=== PATIENT | male | born 1960 | race Caucasian/White ===

== ENCOUNTER 2021-04-25 12:47 | Outpatient (CLI) | payer OTHER, SELFPAY | END 2021-04-25 12:48 | disposition home or self-care (01) | LOC: ANHSURGERY 12:52 | PROVIDERS: PCP Family Medicine; Visit Provider Urology | DX: R97.20 Elevated prostate specific antigen [PSA] (principal) | CPT/HCPCS: 87086 ==

== ENCOUNTER 2021-05-02 01:11 | Day surgery (SDC) | payer OTHER, SELFPAY ==
[2021-04-25 11:07] VITALS: BMI 25.5
--- NOTE | 2021-04-25 11:18 | PC.NURSE ---
Report to the Outpatient Waiting Room, entrance under the green pavilion located off [facility], at time 10:30 on date 05/02/21. OR Time: 12:30. - You will be asked a series of questions to screen for COVID 19 for your protection. - A mask is required within the hospital. - No visitors are allowed at this time. Preoperative COVID Testing Requirements: No COVID Test needed if: (proof is required; if not received patient will have Rapid Test prior to entry) - Patient has received COVID Vaccine at least 14 days prior to procedure date or - Patient has positive COVID test result within last 90 days of surgery date. COVID Test needed if above criteria is not met Patients may have clear liquids (water, carbonated beverages, clear teas, apple juice) until 3 hours prior to surgery (9:30) with a maximum of 20 ounces. - No food from midnight until time of surgery Take the following medications with a SIP of water the morning of surgery: NONE Medications to discontinue per physician: N/A Date to take last dose: N/A Please no make-up, nail japanese, hairspray, perfume, deodorant, or body powder the day of surgery. No jewelry (including any body piercings) or valuables the day of surgery, leave them at home. Please take a shower or bath the night before, or the morning of, surgery with an antibacterial soap. Wear comfortable, loose fitting clothing. - Jewelry must be removed prior to entering the operating room. Rings and piercings that are not removed may be cut off. - The hospital will not accept responsibility for valuables. - Please leave all valuables, including medications, at home the day of surgery. If you are going home after surgery, a licensed straddle bug driver must drive you home. - NO public transportation without another adult. - We recommend that an adult stay with you for 24 hours following discharge. - We also recommend that you do not drive, make important decision, drink alcoholic beverages, or take any drugs that were not prescribed by your health care provider for at least 24 hours after your discharge time. Follow any additional instructions given to you from your surgeon. Telephone instructions given to ROSAMARIA GORDON and asked if any additional questions and then verbalized understanding. Patient advised to call surgeon office or pre surgery nurse liaison [phone] if any additional questions.
--- NOTE | 2021-05-02 11:29 | P.PNAN_ITS ---
Anes - Initial Pre Proc Eval Procedure: Operation Date: 05/02/21 12:30 Proposed Procedures p Transrectal Ultrasound Fusion Guided Prostate Biopsy - Bg Randolph MD Date/Time: 05/02/21 11:29 Surgeon: Bg Randolph MD Pre Op Diagnosis: elevated PSA Patient Data Age: 60 Gender: M Height: 1.78 m Weight: 82.1 kg Allergies Allergy/AdvReac Type Severity Reaction Status Date / Time No Known Allergies Allergy Unknown Verified 05/02/21 10:58 Home Medications Medication Instructions Recorded Confirmed Type No Home Medications 04/25/21 05/02/21 History Patient hx anesthesia problems: none Family hx anesthesia problems: none Results Review: All pre-operative results and documents have been reviewed as part of the pre-operative evaluation. [facility] Past Medical History Medical History (Updated 05/02/21 @ 11:30 by Ino Odell DO) Bradycardia Ectopic atrial rhythm Eczema Screening for prostate cancer Screening, lipid Throat pain in adult Family History Family History Father Malignant neoplasm of prostate Dementia Parkinson's disease Mother Family history of diabetes mellitus in first degree relative Social History Social History Smoking packs per day: 0.5 Smoking cigarettes per day: 10.0 Years smoked: 10 Smoking pack-years: 5.00 Smoking status: Former smoker Tobacco type: cigarettes Smoking end date: 03/25/98 Alcohol intake: current Drinks per week: 12 Substance use: never Substance use type: does not use Living arrangements: with family Additional living arrangements comments: Additional occupation/education comments: IT Gender identity (if verbalized by the patient): Male Sexual Orientation (if Verbalized by the Patient): Straight or Heterosexual Spiritual care concerns: No Agree to blood products: Yes Anes - Eval Final PreProcedure Day of Procedure 05/02/21 11:29 Patient weight: overweight Heart: regular rate and rhythm Lungs: clear to auscultation and normal air movement Airway: Mallampati scale class II Neurological: alert and oriented Last oral intake: >/= 8 hours ASA classification: II Emergent: no Anesthetic plan: proceed Anesthesia type and monitoring: general LMA and standard monitoring Results Review: All pre-operative results and documents have been reviewed as part of the pre-operative evaluation. Informed Consent: The patient's anesthetic plan and its attendant risks and bene fits were discussed with the patient/family/POA. Questions were solicited and answers provided to the satisfaction of the patient/family/POA.
--- NOTE | 2021-05-02 11:29 | WPDHPUPDATE1 ---
History and Physical Update Update Date/Time: 05/02/21 11:29 History and Physical has been reviewed, including an updated exam of the patient. There are NO changes in the patient's condition. Risks, benefits, and alternatives have been discussed and questions answered. Patient agrees to proceed with procedure. Proceed with Uronav ultrasound biopsy
[2021-05-02] MEDS: LACTATED RINGERS 1,000 ML 30 ML IV CONT (11:52)
[2021-05-02] MEDS: ceFAZolin 2 GM/D5W 50 ML 2 GM/50 ML BAG IVPB (12:01)
--- NOTE | 2021-05-02 12:21 | W.PM.PROC2 ---
Procedure Note - Detailed Date of Procedure 05/02/21 Pre-op Diagnosis elevated PSA Post-op Diagnosis same Procedure Performed Uronav us and prostate biopsy Surgeon Bg Randolph MD Anesthesia general Description of Procedure Patient is taken the operative suite and correctly identified. Once anesthesia was obtained and patient was in lateral decubitus position. Transrectal ultrasound was then performed. The MR image was then fused to the ultrasound image. Patient had 2 regions of interest. We took 3 from each region. We then took 12 cores in our standard biopsy. Patient tolerated procedure well without complication is taken recovery stable condition. He will call in 1 week if he is not heard from us regarding the results. Estimated Blood Loss 10 Drains No Packing No Pathology yes Complications No immediate complications Condition stable Disposition PACU
[2021-05-02 12:24] VITALS: BP 97/66; PULSE 54; RESP 12; TEMP 36.4; O2SAT 100
[2021-05-02 12:40] VITALS: BP 110/57; PULSE 58; RESP 12; O2SAT 100
[2021-05-02 12:55] VITALS: BP 98/54; PULSE 60; RESP 14; O2SAT 98
[2021-05-02 13:01] VITALS: BP 121/76; PULSE 62; RESP 14
[2021-05-02 13:30] VITALS: BP 122/75; PULSE 54; RESP 16
== END 2021-05-02 13:52 | disposition home or self-care (01) ==
PROVIDERS: PCP Family Medicine; Visit Provider Urology
PROC: (CPT 55700; principal; 2021-05-02 12:30)
DX: R97.20 Elevated prostate specific antigen [PSA] (principal); N42.89 Other specified disorders of prostate; R00.1 Bradycardia, unspecified; Z87.891 Personal history of nicotine dependence
CPT/HCPCS: 76872; 55700; 88342; G0416; J0690; J1100; J2405; J2704; J7120

== ENCOUNTER 2021-12-09 22:27 | Emergency (ER) | payer OTHER, SELFPAY ==
[2021-12-09] VITALS (13 sets, daily range): BP systolic 107–131; BP diastolic 66–85; PULSE 74–89; RESP 15–23; TEMP 36.6; O2SAT 98–100
--- NOTE | ~2021-12-09 | XR_ITS ---
EXAMINATION: XR chest 1V portable DATE: 12/09/2021 22:52 INDICATION: Syncope. TECHNIQUE: A single frontal view of the chest was obtained. COMPARISON: None. FINDINGS: The chest demonstrates clear lungs without pneumonia, pleural effusion, or pneumothorax. Th e heart size is normal. IMPRESSION: 1. No acute cardiopulmonary disease. Reviewed, dictated and finalized at location A.
--- NOTE | 2021-12-09 22:34 | ECG_ITS ---
Measurements Intervals [place] Rate: 72 P: 53 MT: 174 QRS: 46 QRSD: 95 T: 48 QT: 412 QTc: 454 Interpretive Statements SINUS RHYTHM BORDERLINE ST ABNORMALITY- ANTEROLAT/INF LEADS BASELINE ARTIFACT- III BORDERLINE ECG NO PREVIOUS ECG AVAILABLE FOR COMPARISON Electronically Signed On 12-10-2021 8:01:29 CDT by Deonte Cervantes D.O.
--- NOTE | 2021-12-09 22:38 | ED.GENADULT ---
HPI - General Adult General Chief complaint: Syncope Stated complaint: ALTERED/DIZZY Source: RN notes reviewed History of Present Illness HPI narrative: Patient presents emergency department EMS for syncope. Patient states he was [place] [employer] today when he was listening to a band states he began to feel lightheaded and dizzy and told his friend he laid him down on the ground he then had a syncopal episode he is unsure how long he was out for. He states he did not fall to the ground was laid to the ground states he had had about 3 beers and was feeling warm states he feels fine at this time he denies any headaches vision changes chest pain shortness of breath abdominal pain nausea vomiting or any other symptoms. When EMS arrived patient initially had systolic blood pressures in the 90s that is improved with fluid Related Data Home Medications Medication Instructions Recorded Confirmed No Home Medications 04/25/21 05/02/21 Allergies Allergy/AdvReac Type Severity Reaction Status Date / Time No Known Allergies Allergy Unknown Verified 12/09/21 22:36 Review of Systems Review of Systems: Gen.: Denies fevers or chills ENT: Denies congestion Respiratory: Denies shortness of breath or cough CV: See HPI GI: Denies abdominal pain nausea, emesis or diarrhea Musculoskeletal: Denies back pain or muscle pain Neuro: Denies numbness, tingling, weakness or focal weakness Skin: Denies rash Except as documented, all other systems reviewed and negative [facility] Past Medical History Medical History Bradycardia Ectopic atrial rhythm Eczema Screening for prostate cancer Screening, lipid Throat pain in adult Family History Family History Father Malignant neoplasm of prostate Dementia Parkinson's disease Mother Family history of diabetes mellitus in first degree relative Social History Social History Smoking packs per day: 0.5 Smoking cigarettes per day: 10.0 Years smoked: 10 Smoking pack-years: 5.00 Smoking status: Former smoker Tobacco type: cigarettes Smoking end date: 03/25/98 Alcohol intake: current Drinks per week: 12 Substance use: never Substance use type: does not use Additional living arrangements comments: Additional occupation/education comments: IT Gender identity (if verbalized by the patient): Male Sexual Orientation (if Verbalized by the Patient): Straight or Heterosexual Spiritual care concerns: No Agree to blood products: Yes Exam Narrative: APPEARANCE: No acute distress, nontoxic, resting in bed EYES: EOMI HEENT: Normocephalic, atraumatic, OMM RESPIRATORY: No respiratory distress Clear to auscultation bilaterally with no rhonchi wheezing or rales. CARDIOVASCULAR: Regular rate and rhythm without murmurs rubs or gallops. ABDOMINAL: Soft, nontender, nondistended, no rebound or guarding MUSCULOSKELETAl: Moves all extremities. No clubbing, cyanosis or edema. NEURO: Awake and alert. Following commands, speech normal, no focal deficits SKIN:: Warm, dry. No rashes lesions or abrasions PSYCHIATRIC: Normal affect/mood, Course Course Emergency Course: Reviewed old records including notes from Dr. Hernandes's office Discussed with Dr. Fernandez presentation work-up at this time feels patient may be discharged home with follow-up as an outpatient Discussed with patient results of workup and diagnosis. Discussed need for follow-up with primary care, proper use of medication, and reasons to return to the emergency department. Patient understands and agrees to current treatment plan Vital Signs Vital signs: Vital Signs Temperature 97.9 F 12/09/21 22:28 Pulse Rate 76 12/09/21 22:28 Respiratory Rate 19 12/09/21 22:28 Blood Pressure 125/78 12/09/21 22:28 Pulse Oximetry 100 12/09/21 22:28 Oxygen D
[2021-12-09] MEDS: SODIUM CHLORIDE 0.9% IV 1,000 ML 999 ML IV CONT (22:59)
[2021-12-09 23:37] LABS: Basophils Absolute Auto 0.1 K/mm3 (0.0-0.1); Basophils Percent Auto 0.7 % (0.2-1.2); Eosinophils Absolute Auto 0.2 K/mm3 (0-0.3); Eosinophils Percent Auto 3.6 % (0-4.4); Hematocrit 37.4 % (42.0-52.0); Hemoglobin 12.9 g/dL (14.0-18.0); Immature Granulocyte Absolute 0.01 K/mm3 (0.00-0.031); Immature Granulocyte Percent A 0.1 % (0-0.5); Lymphocytes Absolute Auto 2.64 K/mm3 (0.9-3.2); Lymphocytes Percent Auto 39.6 % (18.3-44.2); Mean Corpuscular HGB Conc 34.5 g/dl (32-36); Mean Corpuscular Hemoglobin 31.8 pg (26-34); Mean Corpuscular Volume 92.1 fl (80-100); Monocytes Absolute Auto 0.6 K/mm3 (0.1-0.6); Monocytes Percent Auto 8.4 % (2.6-8.5); Neutrophils Absolute Auto 3.2 K/mm3 (1.3-6.7); Neutrophils Percent Auto 47.6 % (45.5-73.1); Platelet Count Result 208 k/mm3 (150-375); Red Blood Count 4.06 M/mm3 (4.6-6.20); White Blood Count 6.7 K/mm3 (4.5-10.0)
[2021-12-09 23:46] LABS: Appearance Urine Clear (Clear); Bilirubin Urine Negative (Negative); Color Urine Yellow (Yellow); Glucose Urine UA Negative (Negative); Ketones Urine 1+ mg/dL (Negative); Leukocyte Esterase Ur Negative LEU/UL (Negative); Nitrate Urine Negative (Negative); Protein Urine Negative (Negative); Specific Grav Ur 1.025 (1.001-1.035); Urobilinogen Urine 0.2 mg/dL (<2.0); pH Urine 5.5 (5.0-9.0)
[2021-12-09 23:50] LABS: Mucus Urine Rare /lpf; RBC Urine 0-2 /hpf (0-2); WBC Urine 0-3 /hpf
[2021-12-09 23:54] LABS: Alanine Aminotransferase 16 U/L (6-50); Albumin Level 4.3 g/dL (3.5-5.1); Alkaline Phosphatase 77 U/L (38-126); Anion Gap 13 mmol/L (8-16); Aspartate Amino Transferase 25 U/L (17-59); Bilirubin,Total 0.3 mg/dL (0.2-1.3); Blood Urea Nitrogen 18 mg/dL (9-20); Calcium 8.9 mg/dL (8.4-10.2); Carbon Dioxide 23 mmol/L (22-30); Chloride 102 mmol/L (98-107); Estimated CRCL calculation 49 ml/min; Estimated Glomerular Filt Rate 48; Glucose 107 mg/dL (65-110); Lipase 101 U/L (23-300); Potassium 3.3 mmol/L (3.4-5.0); Sodium 138 mmol/L (137-145)
[2021-12-09 23:56] LABS: Prothrombin Time 12.8 Seconds (11.1-14.7)
[2021-12-09 23:57] LABS: Partial Thromboplastin Time 21.7 SECONDS (22.3-36.8)
[2021-12-10] VITALS (10 sets, daily range): BP systolic 120–124; BP diastolic 72–73; PULSE 77–85; RESP 13–17; O2SAT 99–100
[2021-12-10] LABS: Ethanol 87 mg/dL (<10)
[2021-12-10 00:02] LABS: Add Urine Microscopic? YES; Blood Urine Trace (Negative)
[2021-12-10 00:05] LABS: Troponin I < 0.012 ng/mL (0.000-0.034)
--- NOTE | 2021-12-10 00:19 | PC.NURSE ---
Patient refused potassium, states he wants to leave and speak with the provider. ERP notified.
== END 2021-12-10 01:29 | disposition home or self-care (01) ==
PROVIDERS: Emergency Provider Emergency Medicine; PCP Family Medicine
DX: R55 Syncope and collapse (principal); Z87.891 Personal history of nicotine dependence
CPT/HCPCS: 36415; 71045; 80053; 80307; 81001; 83690; 84484; 85025; 85610; 85730; 93005; 96360; 99284; J7030

== ENCOUNTER 2023-06-05 06:34 | Day surgery (SDC) | payer OTHER, SELFPAY ==
[2023-04-05 14:59] VITALS: BMI 25.8
[2023-06-05 07:49] VITALS: BP 123/73; PULSE 66; RESP 18; TEMP 36.6; O2SAT 100
[2023-06-05] MEDS: LACTATED RINGERS 1,000 ML 150 ML IV CONT (08:03)
--- NOTE | 2023-06-05 08:30 | PM.HPGS ---
History of Present Illness History of Present Illness Consent: Risks, benefits, and alternatives have been discussed and questions answered. Patient agrees to proceed with procedure. Chief complaint: Encounter for malignant neoplasm of colon Narrative: Gene Ledbetter is a 62 year old male presents for screening colonoscopy. Patient has current weight appetite S are normal. He denies abdominal pain. Patient has had no bleeding. Family history noncontributory. Previous exam 10 years ago was unremarkable. Review of Systems Review of Systems: Review of systems noncontributory. [facility] Past Medical History Medical History BMI 25.0-25.9,adult BMI 26.0-26.9,adult Bradycardia Ectopic atrial rhythm Eczema Hypokalemia Screening for prostate cancer Screening, lipid Throat pain in adult Family History Family History Father Malignant neoplasm of prostate Dementia Parkinson's disease Mother Family history of diabetes mellitus in first degree relative Social History Social History Smoking packs per day: 0.5 Smoking cigarettes per day: 10.0 Years smoked: 10 Smoking pack-years: 5.00 Smoking status: Former smoker Tobacco type: cigarettes Smoking end date: 03/25/98 Alcohol intake: current Drinks per week: 9 Substance use: never Substance use type: does not use Lack of Transportation: No Lack of Food: Never True Current Housing: I Have Housing Concerned About Future Housing: No Difficulty Paying Gas/Electric Bills: No Difficulty Paying for Meds: No Currently Unemployed: No Education: Bachelor's Degree Difficulty w/ Childcare or Family Care: No Living arrangements: with family Additional living arrangements comments: Occupation/Education: occupation Additional occupation/education comments: IT Gender identity (if verbalized by the patient): Male Sexual Orientation (if Verbalized by the Patient): Straight or Heterosexual Spiritual care concerns: No Agree to blood products: Yes Meds Home Medications and Allergies Home Medications Medication Instructions Recorded Confirmed Type Vitamin D3 1 tab-cap PO DIRECTED 05/24/23 06/05/23 History Allergies Allergy/AdvReac Type Severity Reaction Status Date / Time No Known Allergies Allergy Unknown Verified 06/05/23 07:46 Vital Signs Vital Signs - 24 hr 06/05/23 07:49 Temperature 97.9 F Pulse Rate 66 Respiratory Rate 18 Blood Pressure 123/73 Pulse Oximetry 100 Oxygen Delivery Room Air Exam Narrative: Physical exam reveals patient to be alert. Vital signs stable. HEENT exam is unremarkable. Patient is anicteric. Lungs are clear to auscultation and percussion. Heart is without murmur or extra sounds. Abdomen bowel sounds are present soft nontender with no organomegaly . Digital and external rectal exam normal. Assessment and Plan Assessment and plan (1) Screening for colon cancer: Code(s): Z12.11 - Encounter for screening for malignant neoplasm of colon Status: Acute Assessment and Plan: The patient Presents today for screening colonoscopy. He appears to be at average risk for colon polyps.
--- NOTE | 2023-06-05 08:46 | WPDANESEPPF ---
Anes - Initial Pre Proc Eval Procedure: Operation Date: 06/05/23 09:00 Proposed Procedures p Screening Colonoscopy - Brody Martino MD Date/Time: 06/05/23 08:46 Surgeon: Brody Martino MD Pre Op Diagnosis: Encounter for malignant neoplasm of colon Patient Data Age: 62 Gender: M Height: 1.78 m Weight: 81.7 kg Last Vital Signs Temp 36.6 C 06/05/23 07:49 Pulse 66 06/05/23 07:49 Resp 18 06/05/23 07:49 BP 123/73 06/05/23 07:49 Pulse Ox 100 06/05/23 07:49 O2 Del Method Room Air 06/05/23 07:49 Allergies Allergy/AdvReac Type Severity Reaction Status Date / Time No Known Allergies Allergy Unknown Verified 06/05/23 07:46 Home Medications Medication Instructions Recorded Confirmed Type Vitamin D3 1 tab-cap PO DIRECTED 05/24/23 06/05/23 History Patient hx anesthesia problems: none Family hx anesthesia problems: none Results Review: All pre-operative results and documents have been reviewed as part of the pre-operative evaluation. [facility] Past Medical History Medical History BMI 25.0-25.9,adult BMI 26.0-26.9,adult Bradycardia Ectopic atrial rhythm Eczema Hypokalemia Screening for prostate cancer Screening, lipid Throat pain in adult Family History Family History Father Malignant neoplasm of prostate Dementia Parkinson's disease Mother Family history of diabetes mellitus in first degree relative Social History Social History Smoking packs per day: 0.5 Smoking cigarettes per day: 10.0 Years smoked: 10 Smoking pack-years: 5.00 Smoking status: Former smoker Tobacco type: cigarettes Smoking end date: 03/25/98 Alcohol intake: current Drinks per week: 9 Substance use: never Substance use type: does not use Lack of Transportation: No Lack of Food: Never True Current Housing: I Have Housing Concerned About Future Housing: No Difficulty Paying Gas/Electric Bills: No Difficulty Paying for Meds: No Currently Unemployed: No Education: Bachelor's Degree Difficulty w/ Childcare or Family Care: No Living arrangements: with family Additional living arrangements comments: Occupation/Education: occupation Additional occupation/education comments: IT Gender identity (if verbalized by the patient): Male Sexual Orientation (if Verbalized by the Patient): Straight or Heterosexual Spiritual care concerns: No Agree to blood products: Yes Anes - Eval Final PreProcedure Day of Procedure 06/05/23 08:46 Patient weight: normal Heart: regular rate and rhythm Lungs: clear to auscultation Airway: Mallampati scale class II Neurological: alert and oriented Last oral intake: >/= 8 hours ASA classification: II Emergent: no Anesthetic plan: proceed Anesthesia type and monitoring: general GIVS and standard monitoring Results Review: All pre-operative results and documents have been reviewed as part of the pre-operative evaluation. Informed Consent: The patient's anesthetic plan and its attendant risks and benefits were discussed with the patient/family/POA. Questions were solicited and answers provided to the satisfaction of the patient/family/POA.
[2023-06-05 09:08] VITALS: BP 92/65; PULSE 64; RESP 16; O2SAT 98
[2023-06-05 09:18] VITALS: BP 98/67; PULSE 70; RESP 20; O2SAT 99
--- NOTE | 2023-06-05 09:20 | WPDANESPN ---
Anes - Prog Note Post-Op Date/Time: 06/05/23 09:20 Cardiovascular status: normal Respiratory status: normal Airway patency: baseline Mental status: baseline Post-Op hydration status: normal Vital Signs: Last Vital Signs Temp 36.6 C 06/05/23 07:49 Pulse 66 06/05/23 07:49 Resp 18 06/05/23 07:49 BP 123/73 06/05/23 07:49 Pulse Ox 100 06/05/23 07:49 O2 Del Method Room Air 06/05/23 07:49 Pain Score (VAS): 0 I/O: Intake & Output 06/04/23 06/05/23 06/05/23 23:59 07:59 15:59 Intake Total 200 Balance 200 Patient Feedback: Patient satisfied with anesthetic care.
[2023-06-05 09:28] VITALS: BP 99/69; PULSE 68; RESP 20; O2SAT 99
== END 2023-06-05 09:40 | disposition home or self-care (01) ==
PROVIDERS: PCP Family Medicine; Visit Provider Internal Medicine Gastroenterology
PROC: 0DJD8ZZ Inspection of Lower Intestinal Tract, Via Natural or Artificial Opening Endoscopic (ICD-10-PCS; CPT 45378; principal; 2023-06-05 09:00)
DX: Z12.11 Encounter for screening for malignant neoplasm of colon (principal); K64.8 Other hemorrhoids
CPT/HCPCS: 45378

== ENCOUNTER 2024-09-17 07:45 | Outpatient (CLI) | payer OTHER, SELFPAY ==
--- NOTE | ~2024-09-17 | PE_ITS ---
EXAMINATION: PET_PETPSMAST_PT DATE: 09/17/2024 10:31 INDICATION: Prostate cancer TECHNIQUE: 4.57 mCi of Illucix Ga-68([id number]) was administered i.v. Low dose computed tomog tvaares (CT) images were acquired from the base of the brain to the base of the brain to the proximal t highs for attenuation correction and anatomic localization. Positron emission tomography (PET) images were acquired in the same distribution beginning 89 minutes after injection. Images including fused PET/CT images were reconstructed in axial, coronal, and sagittal planes. Automated exposure control t echnique was employed. The dose-length product was 1029.58mGy-cm. COMPARISON: None FINDINGS: Head/neck: Typical pattern of symmetric physiologic increased activity in the lacrimal, parotid and submandibula r glands as well as along the mucosa of the nasal and oral cavities, pharynx and hypopharynx. There i s an indeterminate approximately 1 cm focus of mild uptake with maximal SUV of 3.9 in the region of t he right petrous apex without discernible correlate on the CT imaging. No pathologically enlarged cer vical lymphadenopathy or other suspicious foci of increased uptake in the visualized head or neck. Chest: Mild mosaic attenuation in the dependent lungs consistent with dependent passive atelectasis and smal l subsegmental regions of more lucent air trapping likely related to small airway disease. No suspici ous pulmonary nodules, pneumonia, pulmonary edema or pleural effusion. Heart size is normal. No peric ardial effusion. Thoracic aorta is normal in caliber. No pathologically enlarged or PSMA avid thoraci c lymphadenopathy. Abdomen/pelvis/proximal thighs: Physiologic renal accumulation and excretion of activity in the kidneys, bladder and along portions o f ureters. Mild prostatomegaly measuring 3.8 x 2.8 cm maximal diameter. There is a small focus of inc reased PSA may activity with maximal SUV of 19 situated along the midline of the inferior prostate. N ormal degree and slightly heterogenous pattern of increased uptake throughout the liver and spleen wi thout radiologic correlate or dominant PSMA avid lesion. The gallbladder, pancreas and bilateral adre nal glands are normal. Moderate uptake scattered throughout the bowels with typical duodenal and prox imal jejunal predominance and without radiologic correlate, also likely physiologic. Normal appendix. No other abnormal foci of increased uptake or pathologically enlarged lymphadenopathy in the abdomen , pelvis or proximal thighs. Musculoskeletal: Moderate cervical and to severe and lumbosacral spondylosis with mild spondylosis of the intervening thoracic and lumbar spine. No suspicious lytic, blastic or abnormally PSMA avid bone lesions. IMPRESSION: 1. Prominent uptake at the inferior prostate consistent with primary prostate cancer. No lesion suspi cious for metastatic disease in the chest, abdomen or pelvis. 2. Indeterminate 1 cm region of mild increased uptake in the region of the right petrous apex which i s without evident correlate on CT. Recommend further evaluation with pre and postcontrast brain MR. Reviewed, dictated and finalized at location A. IMPRESSION: 1. Prominent uptake at the inferior prostate consistent with primary prostate c ancer. No lesion suspicious for metastatic disease in the chest, abdomen or pel vis. 2. Indeterminate 1 cm region of mild increased uptake in the region of the righ t petrous apex which is without evident correlate on CT. Recommend further eval uation with pre and postcontrast brain MR.
== END 2024-09-17 07:46 | disposition home or self-care (01) ==
PROVIDERS: PCP Family Medicine; Visit Provider Urology
DX: C61 Malignant neoplasm of prostate (principal)
CPT/HCPCS: 78815; A9596

== ENCOUNTER 2024-11-16 11:45 | Outpatient (CLI) | payer OTHER, SELFPAY ==
--- OUTSIDE RECORDS SUMMARY | 2024-11-16 12:18 | XMS_ITS | Continuity of Care Document ---
Author Name Griselda Hunt Address [address] [address] Organization Unknown Address [address] [address] Medications No known medications Problems No known problems
--- OUTSIDE RECORDS SUMMARY | 2024-11-16 12:18 | XMS_ITS | Clinical Summary ---
Author Organization [facility] [address] Address [address] [place] [address] Care Team Providers Care Bartacker Name Role Phone Hoang Calix MD Primary Care Provider Allergies No known active allergies Medications cholecalciferol (VITAMIN D-3) 2000 unit tablet Active Active Problems Problem Noted Date Diagnosed Date Lipid screening 07/09/2024 H/O syncope 04/08/2023 Mixed hyperlipidemia 04/08/2023 History of 2019 novel coronavirus disease (COVID -19) 08/29/2021 Other specified injury of mu scle, fascia and tendon at neck level, initial encounter 01/20/2020 Bradycardia 06/16/2018 Syncope, vasovagal 01/29/2017 Chest pain at rest 08/09/2016 Overview (08/17/2016): Chest pain at rest Chest pain 08/04/2015 Overview (06/28/2016): Other chest pain Disorder of right ventricle of heart 08/23/2014 Overview (06/28/2016): Right ventricular enlargement Ectopic atrial rhythm 08/23/2014 Overview (06/28/2016): Ectopic atrial rhythm Dizziness 08/23/2014 Overview (06/28/2016): Dizziness Atrial paroxysmal tachycardia 08/23/2014 Overview (06/28/2016): PAT (paroxysmal atrial tachycardia) Fatigue 08/23/2014 Overview (06/28/2016): Fatigue Surgical History Surgery Date Site/Laterality Comments ANKLE FRACTURE SURGERY Medical History Medical History Date Comments PAT (paroxysmal atrial tachycardia) Bradycardia Fracture Family History Medical History Relation Name Comments No Known Problems Father No Known Problems Mother Cancer Other Diabetes Other Parkinsonism Other Relation Name Status Comments Father Mother Other Social History Tobacco Use Types Packs/Day Years Used Date Smoking Tobacco: Former Smokeless Tobacco: Never Alcohol Use Standard Drinks/Week Comments Yes 0 (1 standard drink = 0.6 oz pur e alcohol) Sex and Gender Information Value Date Recorded Sex Assigned at Not on file 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 Gender Identity Not on file Sexual Orientation Not on file Obstetrics History Last Filed Vital Signs Vital Sign Reading Time Taken Comments Blood Pressure 110/72 07/09/2024 11:43 AM CDT Pulse 69 07/09/2024 11:43 AM CDT Temperature - - Respiratory Rate 14 07/09/2024 11:43 AM CDT Oxygen Saturation 98% 07/09/2024 11:43 AM CDT Inhaled Oxygen Concentration - - Weight 82.6 kg (182 lb) 07/09/2024 11:43 AM CDT Height 177.8 cm (5' 10) 07/09/2024 11:43 AM CDT Body Mass Index 26.11 07/09/2024 11:43 AM CDT Plan of Treatment Health Maintenance Due Date Last Done Comments Colon Cancer Screening-Colonoscopy 1960 Depression Screening 1960 Hepatitis C Screening 1962 Prostate Cancer Screening-PSA 1962 Hepatitis B Screening 1980 Regular Well Visit/Exam 18-64 1980 Zoster Vaccine (1 of 2) 2012 Covid-19 Vaccine (2023-2 5 season) 2023 07/13/2020, 06/22/2020 Influenza Vaccine (#1) 2024 DTaP/Tdap/Td Vaccine (2 - Td or Tdap) 01/30/2025 01/30/2015 Pneumococcal vaccine <65 Aged Out No longer eligible based on patient's age to complete this topic Insurance [facility] PLUS [facility] PLUS [facility] PLUS Care Teams Bartacker Relationship Specialty Start Date End Date Hoang Calix MD PCP - General 06/25/14
--- OUTSIDE RECORDS SUMMARY | 2024-11-16 12:18 | XMS_ITS | Encounter Summary ---
Author Organization [facility] Address [address] [place] [address] Care Team Providers Care Spooler Name Role Phone Hoang Calix MD Primary Care Provider Encounter Details Date Type Department Care Team (Late st Contact Info) Description 08/09/2016 Orders Only [facility] ProviderValdemar MD [address] [place] [id number] Social History Tobacco Use Types Packs/Day Years Used Date Smoking Tobacco: Former Cigarettes Q uit: 03/25/1996 Alcohol Use Standard Drinks/Week Comments Yes 0 (1 standard drink = 0.6 oz pur e alcohol) Sex and Gender Information Value Date Recorded Sex Assigned at Not on file 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 Historical Provider [facility] Final Result * CARDIOLOGY REPORT (08/09/2016) Anatomical Region Laterality Modality Other Narrative 08/09/2016 Ordered by an unspecified provider. us Historical Provider [facility] Final Result documented in this encounter Visit Diagnoses Not on filedocumented in this encounter Care Teams Spooler Relationship Specialty Start Date End Date Hoang Calix MD PCP - General 06/25/14 documented as of this encounter
--- NOTE | 2024-11-16 12:55 | ECG_ITS ---
Test Date: 2024-11-16 13:07:52 Measurements Intervals [place] Rate: 50 P: 52 ND: 167 QRS: 25 QRSD: 90 T: 33 QT: 441 QTc: 405 Interpretive Statements SINUS BRADYCARDIA BORDERLINE ECG No previous ECG available for comparison Electronically Signed On 11-16-2024 13:15:49 CDT by Deonte Cervantes D.O.
[2024-11-16 13:27] LABS: Hematocrit 40.5 % (42.0-52.0); Hemoglobin 13.8 g/dL (14.0-18.0); Immature Granulocyte Percent A 0.2 % (0-0.5); Lymphocytes Absolute Auto 1.59 K/mm3 (0.9-3.2); Mean Corpuscular HGB Conc 34.1 g/dl (32-36); Mean Corpuscular Hemoglobin 31.2 pg (26-34); Mean Corpuscular Volume 91.4 fl (80-100); Nucleated Red Blood Cells Absolute Auto 0.000 K/mm3 (0.0-0.012); Nucleated Red Blood Cells Perc 0.0 % (0.0-0.2); Platelet Count Result 233 k/mm3 (150-375); Red Blood Count 4.43 M/mm3 (4.6-6.20); White Blood Count 6.2 K/mm3 (4.5-10.0)
[2024-11-16 13:39] LABS: INR 1.0; Prothrombin Time 13.8 Seconds (11.1-14.7)
[2024-11-16 13:40] LABS: Partial Thromboplastin Time 24.2 Seconds (22.3-36.8)
[2024-11-16 13:42] LABS: Alanine Aminotransferase 13 U/L (6-50); Albumin Level 4.3 g/dL (3.5-5.1); Alkaline Phosphatase 66 U/L (38-126); Anion Gap 8 mmol/L (4-12); Aspartate Amino Transferase 23 U/L (17-59); Bilirubin,Total 0.5 mg/dL (0.2-1.3); Blood Urea Nitrogen 19 mg/dL (9-20); Calcium 9.3 mg/dL (8.4-10.2); Carbon Dioxide 29 mmol/L (22-30); Chloride 103 mmol/L (98-107); Estimated Glomerular Filt Rate > 60; Glucose 88 mg/dL (65-110); Potassium 3.9 mmol/L (3.4-5.0); Sodium 140 mmol/L (137-145); Total Protein 7.4 g/dL (6.3-8.2)
== END 2024-11-16 11:46 | disposition home or self-care (01) ==
PROVIDERS: PCP Family Medicine; Visit Provider Urology
DX: C61 Malignant neoplasm of prostate (principal); Z01.818 Encounter for other preprocedural examination
CPT/HCPCS: 36415; 80053; 85025; 85610; 85730; 86850; 86900; 86901; 87086; 93005

== ENCOUNTER 2024-11-24 00:58 | Day surgery (SDC) | payer OTHER, SELFPAY ==
--- NOTE | 2024-11-16 11:46 | PC.NURSE ---
Report to the Outpatient Waiting Room, entrance under the green pavilion located off [facility], at time _6 AM on date _11/24/24 . Planned Procedure Time: ___7:30 AM .? Time changes happen often and if your time is changed the preop area will call you the afternoon before. - You and your visitor will be asked to self-screen and do not enter if you have any COVID symptoms. Please call surgeon if you need to reschedule. - A mask is optional within the hospital at this time. Patients may have clear liquids (water, carbonated beverages, clear teas, apple juice) until 3 hours prior to surgery ( 4:30 AM) with a maximum of 20 ounces. - No food from midnight until time of surgery and no smoking, or chewing tobacco (or any form of nicotine). No chewing gum, candy or mints. Take only the following medications with a SIP of water on the morning of surgery: NONE DO NOT STOP ANY OF YOUR OTHER PRESCRIPTION MEDICATIONS PRIOR TO SURGERY EXCEPT THE FOLLOWING Hold all vitamins and supplements for 3 days per anesthesiologist.LAST DOSE 11/20/24 Medications to discontinue per physician NONE Please no make-up, nail guatemalan, hairspray, perfume, deodorant, or body powder the day of surgery.? No jewelry (including any body piercings) or valuables the day of surgery, leave them at home.? Please take a shower or bath the night before, or the morning of, surgery with an antibacterial soap.? Wear comfortable, loose fitting clothing.? Children are encouraged to wear pajamas. - Jewelry must be removed prior to entering the operating room.? Rings and piercings that are not removed may be cut off. - The hospital will not accept responsibility for valuables.? - Please leave all valuables, including medications, at home the day of surgery. If you are going home after surgery, a licensed flatbed driver must drive you home.? - NO public transportation without another adult if you receive anesthesia. - We recommend that an adult stay with you for 24 hours following discharge. - We also recommend that you do not drive, make important decision, drink alcoholic beverages, or take any drugs that were not prescribed by your health care provider for at least 24 hours after your discharge time. For Pediatric surgeries, we recommend two adults accompany the child home. Follow any additional instructions given to you from your surgeon. VERBAL AND WRITTEN instructions given to _PATIENT_AND PABLO and asked if any additional questions and then verbalized understanding. Patient advised to call surgeon office or pre surgery nurse liaison [phone] if any additional questions.
[2024-11-16 11:57] VITALS: BMI 26.5
[2024-11-16 12:53] VITALS: BP 131/75; PULSE 68; RESP 18; TEMP 36.9; O2SAT 99
[2024-11-24] VITALS (15 sets, daily range): BP systolic 100–137; BP diastolic 53–73; PULSE 52–88; RESP 12–20; TEMP 36.2–36.9; O2SAT 95–100
--- OUTSIDE RECORDS SUMMARY | 2024-11-24 01:00 | XMS_ITS | Clinical Summary ---
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
--- OUTSIDE RECORDS SUMMARY | 2024-11-24 01:00 | XMS_ITS | Encounter Summary ---
Author Organization [facility] Address [address] [place] [address] Care Team Providers Care Bull Driver Name Role Phone Hoang Calix MD Primary Care Provider Encounter Details Date Type Department Care Team (Late st Contact Info) Description 08/09/2016 Orders Only [facility] ProviderValdemar MD [address] [place] [id number] Social History Tobacco Use Types Packs/Day Years Used Date Smoking Tobacco: Former Cigarettes Q uit: 03/25/1996 Alcohol Use Standard Drinks/Week Comments Yes 0 (1 standard drink = 0.6 oz pur e alcohol) Sex and Gender Information Value Date Recorded Sex Assigned at Not on file Legal Sex Male 3:[address] DRIVER Gender Identity Not on file Sexual Orientation [...] on filedocumented in this encounter Care Teams Bull Driver Relationship Specialty Start Date End Date Hoang Calix MD PCP - General 06/25/14 documented as of this encounter
--- OUTSIDE RECORDS SUMMARY | 2024-11-24 01:00 | XMS_ITS | Clinical Summary ---
Author Organization [facility] Address [address] [place] [address] Care Team Providers Care Cutter Plastics Rolls Name Role Phone Hoang Calix MD Primary Care Provider [phone] Encounters Date Type Department Care Team Description 11/17/2024 10:57 AM CDT - 11/17/2024 11:59 PM CDT Hospital Encounter Health system [address] [place] [address] Hoang Calix MD Discharge Disposition: Home or Self Care (Routine Discharge) 11/17/2024 Travel from Last 3 Months Social History Tobacco Use Types Packs/Day Years Used Date Smoking Tobacco: Never Assessed Sex and Gender Information Value Date Recorded Sex Assigned at Male 10/28/2024 10:14 AM CDT Legal Sex Male 10:13 AM CDT Gender Identity Not on file Sexual Orientation Not on file Plan of Treatment Health Maintenance Due Date Last Done Comments Colorectal Cancer Screening Colonoscopy (10 Years) 1962 Annual Physical 1965 Hepatitis C 1980 Pneumococcal Vaccine: 50+ Years (1 of 1 - PCV) 2012 Zoster Vaccines (1 of 2) 2012 COVID-19 Vaccine ( - 2023-2 5 season) 2023 07/13/2020, 06/22/2020 DTaP, Tdap and Td Vaccines ( 2 - Td or Tdap) 01/30/2025 01/30/2015 RSV Immunization or 60+ Years (1 - 1-dose 75+ series) 2037 Meningococcal B Vaccine Aged Out No l onger eligible based on patient's age to complete this topic Meningococcal Vaccine Aged Out No eladio rajani eligible based on patient's age to complete this topic RSV Immunizations Under 20 Months Aged Out No longer eligible b ased on patient's age to complete this topic Insurance [facility] Care Teams Cutter Plastics Rolls Relationship Specialty Start Date End Date Hoang Calix MD [address] [address] PCP - General FAMILY PRACTICE 11/03/24
[2024-11-24] MEDS: LACTATED RINGERS 1,000 ML 30 ML IV CONT ×2 (07:00→12:10)
--- NOTE | 2024-11-24 07:16 | WPDANESEPPF ---
Anes - Initial Pre Proc Eval Procedure: Operation Date: 11/24/24 07:30 Proposed Procedures p Robotic Assisted Nerve Sparing Prostatectomy, Possible Bilateral Pelvic Lymph Node Dissection - Bg Randolph MD Date/Time: 11/24/24 07:16 Surgeon: Bg Randolph MD Pre Op Diagnosis: prostate CA Patient Data Age: 64 Gender: M Height: 1.78 m Weight: 84 kg Last Vital Signs Temp 98.4 F 11/16/24 12:53 Pulse 68 11/16/24 12:53 Resp 18 11/16/24 12:53 BP 131/75 11/16/24 12:53 Pulse Ox 99 11/16/24 12:53 O2 Del Method Room Air 11/16/24 12:53 Allergies Allergy/AdvReac Type Severity Reaction Status Date / Time No Known Allergies Allergy Unknown Verified 11/24/24 06:23 Home Medications ?Medication ?Instructions ?Recorded ?Confirmed ?Type cholecalciferol (vitamin D3) 25 25 mcg PO DAILY 01/23/24 11/24/24 History mcg (1,000 unit) capsule Patient hx anesthesia problems: none Family hx anesthesia problems: none Results Review: All pre-operative results and documents have been reviewed as part of the pre-operative evaluation. [facility] Past Medical History Medical History (Updated 10/05/24 @ 08:04 by Hoang Calix MD) BMI 25.0-25.9,adult Hypokalemia BMI 26.0-26.9,adult Bradycardia Screening, lipid Screening for prostate cancer Throat pain in adult Ectopic atrial rhythm Eczema Family History Family History Father Malignant neoplasm of prostate Dementia Parkinson's disease Mother Family history of diabetes mellitus in first degree relative Social History Social History Smoking packs per day: 0.5 Smoking cigarettes per day: 10.0 Years smoked: 10 Smoking pack-years: 5.00 Smoking status: Former smoker Tobacco type: cigarettes Smoking end date: 03/25/98 Alcohol intake: current Drinks per week: 9 Alcohol use details: BEER Substance use: never Substance use type: does not use Lack of Transportation: No Lack of Food: Never True Current Housing: I Have Housing Concerned About Future Housing: No Difficulty Paying Gas/Electric Bills: No Difficulty Paying for Meds: No Currently Unemployed: No Education: Bachelor's Degree Difficulty w/ Childcare or Family Care: No Living arrangements: with family Additional living arrangements comments: Occupation/Education: occupation Additional occupation/education comments: IT Gender identity (if verbalized by the patient): Male Sexual Orientation (if Verbalized by the Patient): Straight or Heterosexual Spiritual care concerns: No Agree to blood products: Yes Anes - Eval Final PreProcedure Day of Procedure 11/24/24 07:16 Patient weight: normal Heart: regular rate and rhythm Lungs: clear to auscultation Airway: Mallampati scale class III Neurological: alert and oriented Last oral intake: >/= 8 hours ASA classification: III Emergent: no Anesthetic plan: proceed Anesthesia type and monitoring: general ETT (have glide scope available) and standard monitoring Results Review: All pre-operative results and documents have been reviewed as part of the pre-operative evaluation. Informed Consent: The patient's anesthetic plan and its attendant risks and benefits were discussed with the patient/family/POA. Questions were solicited and answers provided to the satisfaction of the patient/family/POA.
--- NOTE | 2024-11-24 07:21 | PM.IMHP ---
H&P: HPI History of Present Illness Date/Time: 11/24/24 07:21 Chief Complaint: Adenocarcinoma of prostate Narrative: 64 yr old male with prostate cancer presents for robotic assist nerve sparing prostatectomy with possible plnd Review of Systems Review of Systems: All systems reviewed & are unremarkable except as noted in HPI and below PMFSH Past Medical History Medical History (Updated 11/24/24 @ 07:24 by Bg Randolph MD) Prostate cancer BMI 25.0-25.9,adult Hypokalemia BMI 26.0-26.9,adult Bradycardia Screening, lipid Screening for prostate cancer Throat pain in adult Ectopic atrial rhythm Eczema Family History Family History Father Malignant neoplasm of prostate Dementia Parkinson's disease Mother Family history of diabetes mellitus in first degree relative Social History Social History Smoking packs per day: 0.5 Smoking cigarettes per day: 10.0 Years smoked: 10 Smoking pack-years: 5.00 Smoking status: Former smoker Tobacco type: cigarettes Smoking end date: 03/25/98 Alcohol intake: current Drinks per week: 9 Alcohol use details: BEER Substance use: never Substance use type: does not use Lack of Transportation: No Lack of Food: Never True Current Housing: I Have Housing Concerned About Future Housing: No Difficulty Paying Gas/Electric Bills: No Difficulty Paying for Meds: No Currently Unemployed: No Education: Bachelor's Degree Difficulty w/ Childcare or Family Care: No Living arrangements: with family Additional living arrangements comments: Occupation/Education: occupation Additional occupation/education comments: IT Gender identity (if verbalized by the patient): Male Sexual Orientation (if Verbalized by the Patient): Straight or Heterosexual Spiritual care concerns: No Agree to blood products: Yes Meds Home Medications and Allergies Home Medications ?Medication ?Instructions ?Recorded ?Confirmed ?Type cholecalciferol (vitamin D3) 25 25 mcg PO DAILY 01/23/24 11/24/24 History mcg (1,000 unit) capsule Allergies Allergy/AdvReac Type Severity Reaction Status Date / Time No Known Allergies Allergy Unknown Verified 11/24/24 06:23 Exam Const: General: cooperative and comfortable Resp: Effort & Inspection: normal respiratory effort Cardio: Rate: regular rate Rhythm: regular rhythm GI: Inspection: normal to inspection Assessment and Plan Assessment and plan (1) Prostate cancer: Code(s): C61 - Malignant neoplasm of prostate Status: Acute Assessment and Plan: Robotic assist nerve sparing prostatectomy with possible plnd
--- NOTE | 2024-11-24 07:24 | WPDHPUPDATE1 ---
History and Physical Update Update Date/Time: 11/24/24 07:24 History and Physical has been reviewed, including an updated exam of the patient. There are NO changes in the patient's condition. Risks, benefits, and alternatives have been discussed and questions answered. Patient agrees to proceed with procedure.
[2024-11-24] MEDS: ceFAZolin 2 GM in SODIUM CHLORIDE 0.9% IV 50 ML 100 ML IVPB (07:35)
[2024-11-24] MEDS: BUPivacaine HCL 0.5% 10 ML AMP 30 ML INFILTRATE (07:51)
--- NOTE | 2024-11-24 11:55 | W.PM.PROC2 ---
Procedure Note - Detailed Date of Procedure 11/24/24 Pre-op Diagnosis prostate CA Post-op Diagnosis Same Procedure Performed Robotic assisted nerve-sparing prostatectomy with right pelvic lymph node dissection Surgeon Bg Randolph MD Anesthesia General Description of Procedure Patient was taken to the operative suite correctly identified. Once anesthesia was obtained was placed in low-lying dorsal lithotomy position and prepped and draped usual sterile fashion. Sixteen Nicaraguan Tellez was inserted. Supraumbilical incision was made and carried down to the rectus fascia. Veress needle was inserted. Abdomen was insufflated to 15 mmHg pressure. Camera port was placed under direct vision. Working ports were also placed. Patient had been placed in steep Trendelenburg position and the robot was docked. Adhesions were taken down. Posterior approach was performed. Bilateral seminal vesicles were dissected out in their entirety. Vas is were transected. Plane between the prostate and rectum was developed. Bladder was taken down the standard fashion. Space of Retzius developed and the puboprostatic 6 incised. Dorsal venous complex was isolated and ligated using 0 Vicryl in secured to the pubic bone. Will bladder was then opened anteriorly and posteriorly. Posterior to non VA is was exposed to. Prior dissected seminal vesicles and vas were brought out. Pedicles where clipped bilaterally. Bilateral nerve-sparing was performed. Dorsal venous complex was transected as was the urethra. Specimen was placed in an Endo-Catch bag. Right pelvic lymph node dissection was then performed with boundaries being Jaya's ligament, bifurcation of the vessels, external iliac vein common obturator nerve. Packet was also placed in an Endo-Catch bag. Surgicel was placed in the obturator fossa. Vernon stitch was then placed using 0 Vicryl. V lock suture was used to anastomose the urethral mucosa to the bladder neck. There was good approximation. Sixteen Nicaraguan Tellez was placed. Bladder was filled with 250 cc of saline. There was good no evidence of extravasation at this time. CRUZ was drained through the 4th working port site. Robot was undocked. Endo-Catch bag was brought out through the midline incision. All lap counts needle counts sponge counts were correct. Rectus fascia had been closed using 0 Vicryl in a running fashion. Subcuticular stitches were placed. Patient is taken recovery stable condition. This completes dictation. Please send a copy of op note to my office. Estimated Blood Loss 100 Drains Yes Packing No Pathology Yes Complications No immediate complications Condition Stable Disposition PACU
[2024-11-24] MEDS: fentaNYL CITRATE INJ (*CRX) 100 MCG/2 ML VIAL 25 MCG IV PUSH ×8 (12:23→13:33)
--- NOTE | 2024-11-24 13:12 | S_PTH ---
PATIENT: Gene Ledbetter LOC: [facility] U#:[id number] AGE/SX: 64/M ROOM: RE11/24/[address]: Bg RandolphMD : 1960 BED: DIS: 11/25/2024 SPEC #: [id number] RECD: 11/24/24 13:14 STATUS: JIMI REQ #: [id number] YARED: 11/24/24 13:[address]: Agustín,Bg Roy DEPT: [facility] Surgical RECD BY: Tanesha Roth ENTERED: 11/24/24 13:14 SP TYPE: Surgical OTHR DR: Hoang Calix MD Tissues: A - Prostate Procedures: Hematoxylin and Eosin Stain Gross and Microscopic Level 6
--- NOTE | 2024-11-24 14:00 | PC.NURSE ---
This patient, Gene Ledbetter, was admitted to [facility] Surg Room 313-01. Patient/family oriented to hospital policies and general routines including ID bracelet, bed and alarms, visiting hours, pain management, procedures, bathroom and other care routines, personal items, smoking policy, room service/diet, and visiting hours. Information on how to activate the Rapid Response Team has been discussed. Patient/Family are encouraged to report perceived risks to care and to ask questions if they do not understand what they are told or what they should do.
[2024-11-24] MEDS: LACTATED RINGERS 1,000 ML 125 ML IV CONT ×2 (14:40→23:15)
[2024-11-24] MEDS: HYDROcodone/acetaminophen (*CRX) 5-325 MG TABLET 2 TAB PO (16:12)
[2024-11-24] MEDS: DOCUSATE SODIUM 100 MG CAPSULE PO (16:50)
[2024-11-24] MEDS: HYDROcodone/acetaminophen (*CRX) 5-325 MG TABLET 1 TAB PO (23:21)
[2024-11-25 03:45] VITALS: BP 118/68; PULSE 62; RESP 18; TEMP 36.3; O2SAT 98
[2024-11-25 05:51] LABS: Hematocrit 37.4 % (42.0-52.0); Hemoglobin 12.6 g/dL (14.0-18.0)
[2024-11-25 06:10] VITALS: BP 127/64; PULSE 61; RESP 18; TEMP 36.6; O2SAT 99
[2024-11-25 06:12] LABS: Anion Gap 5 mmol/L (4-12); Blood Urea Nitrogen 16 mg/dL (9-20); Calcium 8.7 mg/dL (8.4-10.2); Carbon Dioxide 27 mmol/L (22-30); Chloride 104 mmol/L (98-107); Estimated CRCL calculation 64 ml/min; Estimated Glomerular Filt Rate > 60; Glucose 93 mg/dL (65-110); Potassium 3.9 mmol/L (3.4-5.0); Sodium 136 mmol/L (137-145)
[2024-11-25] MEDS: LACTATED RINGERS 1,000 ML 125 ML IV CONT (07:42)
--- NOTE | 2024-11-25 08:10 | WPDUROPN2 ---
Progress Note: A&P Assessment and Plan (1) Prostate cancer: Code(s): C61 - Malignant neoplasm of prostate Status: Acute Assessment and Plan: Doing well overall. Increase activity. Will re-evaluate later this morning or early afternoon. If CRUZ output put fairly low will removed CRUZ in discharged home with Tellez catheter. Catheter cystogram in 1 week. Subjective Subjective Date/Time Seen: 11/25/24 08:10 Interval history: Postoperative day 1. Robotic assisted nerve-sparing prostatectomy with right pelvic lymph node dissection. Doing well overall. No major complaints Review of Systems Review of Systems: All systems reviewed & are unremarkable except as noted in HPI and below Exam Const: General: cooperative and comfortable Resp: Effort & Inspection: normal respiratory effort Cardio: Rate: regular rate Rhythm: regular rhythm GI: GI Palp: Yes Soft to palpation Urinary Catheter: Urinary Catheter: patent and draining and urine clear Objective Data Vital Signs Vital Signs: Vital Signs - 24 hr 11/24/24 12:10 11/24/24 12:25 11/24/24 12:40 Temperature 36.6 C Pulse Rate 70 68 60 Respiratory Rate 12 12 12 Blood Pressure 100/56 L 106/57 L 107/53 L Pulse Oximetry 99 100 100 Oxygen Delivery Simple Face Mask Simple Face Mask Simple Face Mask Oxygen Flow Rate 6 6 6 11/24/24 12:55 11/24/24 13:10 11/24/24 13:25 Temperature Pulse Rate 60 82 74 Respiratory Rate 12 12 12 Blood Pressure 119/67 119/66 118/65 Pulse Oximetry 100 95 97 Oxygen Delivery Room Air Room Air Room Air Oxygen Flow Rate 11/24/24 13:40 11/24/24 13:50 11/24/24 14:00 Temperature 36.7 C 36.2 C L Pulse Rate 81 71 88 Respiratory Rate 12 12 20 Blood Pressure 124/57 L 118/66 137/68 Pulse Oximetry 96 99 96 Oxygen Delivery Room Air Room Air Oxygen Flow Rate 11/24/24 14:15 11/24/24 14:34 11/24/24 14:45 Temperature 36.6 C 36.4 C L Pulse Rate 85 77 Respiratory Rate 18 18 Blood Pressure 132/67 130/69 Pulse Oximetry 99 97 Oxygen Delivery Room Air Oxygen Flow Rate 11/24/24 15:45 11/24/24 19:45 11/24/24 22:20 Temperature 36.9 C 36.8 C Pulse Rate 79 68 Respiratory Rate 20 18 Blood Pressure 123/73 126/63 Pulse Oximetry 98 98 Oxygen Delivery Room Air Oxygen Flow Rate 11/24/24 23:45 11/25/24 03:45 11/25/24 06:10 Temperature 36.4 C L 36.3 C L 36.6 C Pulse Rate 64 62 61 Respiratory Rate 18 18 18 Blood Pressure 120/61 118/68 127/64 Pulse Oximetry 98 98 99 Oxygen Delivery Oxygen Flow Rate 11/25/24 08:00 Temperature Pulse Rate Respiratory Rate Blood Pressure Pulse Oximetry Oxygen Delivery Room Air Oxygen Flow Rate Intake/Output Intake/Output: Intake & Output 11/22/24 11/23/24 11/24/24 11/25/24 23:59 23:59 23:59 23:59 Intake Total 2210 1000 Output Total 960 Balance 1250 1000 Meds/Results Medications: Active Medications Generic Name Dose Route Start Last Admin Trade Name Freq PRN Reason Stop Dose Admin Hydrocodone Bitart/Acetaminophen 1 tab 11/24/24 13:55 11/24/24 23:21 Hydrocodone/Acetaminophen (*Crx) 5-325 Mg Tablet PO 1 tab Q6H PRN Administration Pain Rated 1-3 Hydrocodone Bitart/Acetaminophen 2 tab 11/24/24 13:55 11/24/24 16:12 Hydrocodone/Acetaminophen (*Crx) 5-325 Mg Tablet PO 2 tab Q6H PRN Administration Pain Rated 4-6 Docusate Sodium 100 mg 11/24/24 17:00 11/24/24 16:50 Docusate Sodium 100 Mg Capsule PO 100 mg BID KENDRICK Administration Hyoscyamine 0.125 mg 11/24/24 13:55 Hyoscyamine Sulfate 0.125 Mg Tablet SUBLINGUAL Q4H PRN Bladder Spasm Lactated Ringer's 1,000 mls @ 125 mls/hr 11/24/24 13:55 11/25/24 07:42 Lr - Lactated Ringers Iv IV CONT 125 mls/hr .Q8H KENDRICK Administration Ketorolac Tromethamine 15 mg 11/24/24 13:55 Ketorolac 15 Mg/Ml Vial (*Bkc) IV PUSH 11/25/24 13:54 Q6H PRN Pain Rated 4-6 Levofloxacin 500 mg 11/25/24 09:00 Levofloxacin 500 Mg Tablet PO DAILY KENDRICK Morphine Sulfate 1 mg 11/24/24 13:55 Morphine Sulfate (*Crx) 2 Mg/Ml Inj IV PUSH Q2H PRN Pain Rated 7-10 Naloxone HCl 0.1 mg 11/24/24 13:55 Naloxone Hcl 0.4 Mg/Ml Vial IV PUSH Q2M PRN Opiate Reversal Ondansetron HCl 4 mg 11/24/24 13:55 Ondansetron Inj 4 Mg/2 Ml Vial IV PUSH Q6H PRN Nausea And Vomiting Labs Labs: Laboratory Results - last 24 hr 11/25/24 05:01 Hgb 12.6 L Hct 37.4 L Sodium 136 L Potassium 3.9 Chloride 104 Carbon Dioxide 27 Anion Gap 5 BUN 16 Creatinine 1.10 Estim Creat Clear Calc 64 Estimated GFR > 60 Glucose 93 Calcium 8.7
[2024-11-25] MEDS: DOCUSATE SODIUM 100 MG CAPSULE PO (08:43)
[2024-11-25] MEDS: HYOSCYAMINE SULFATE 0.125 MG TABLET SUBLINGUAL (08:43)
[2024-11-25] MEDS: HYDROcodone/acetaminophen (*CRX) 5-325 MG TABLET 2 TAB PO (08:43)
[2024-11-25 10:37] VITALS: BP 121/66; PULSE 60; RESP 18; TEMP 36.2; O2SAT 98
--- NOTE | 2024-11-25 13:48 | PM.DS ---
DS: Admitting Diagnosis Discharge Date 11/25/2024 Admitting Diagnosis prostate cancer DS: Discharge Diagnosis Discharge Diagnosis Plan prostate cancer POD 1 Robotic assisted nerve-sparing prostatectomy with right pelvic lymph node dissection DS: Summary Hospital Course Hospital Course: POD 1 Robotic assisted nerve-sparing prostatectomy with right pelvic lymph node dissection -follow up in one week for imaging and tracy removal -discharge with tracy and care instructions -discharge with CRUZ drain. Teach patient how to empty and record output. When less than 50ml per 12 hrs, then call office for saturday to come in for removal. Status at Discharge Functional status at discharge: independent ambulation Overall status at discharge: patient is back to baseline Time Spent with Patient Time attestation: Total time spent providing and/or coordinating discharge services: Exam Const: General: comfortable and no acute distress HENMT: Mouth: Yes moist mucous membranes Eyes: General: appearance normal, both eyes and all related structures Neck: Neck: supple Resp: Effort & Inspection: normal respiratory effort Cardio: Rate: regular rate GI: GI Palp: Yes Soft to palpation Auscultation: normal bowel sounds Other: abdominal incisions cdi : Male General Exam: Yes normal external exam Urinary Catheter: Urinary Catheter: patent and draining and urine clear Skin: General skin exam: normal color Extrem: General: normal to inspection Psych: Mental Status: mental status grossly normal Affect: normal affect DS: Data Data Completed and Pending Completed studies during hospitalization: Pending at discharge 11/24/24 13:12 Surgical [PTH] Routine Labs on day of discharge: Labs from last 24 hours 11/25/24 05:01 Hgb 12.6 L Hct 37.4 L Sodium 136 L Potassium 3.9 Chloride 104 Carbon Dioxide 27 Anion Gap 5 BUN 16 Creatinine 1.10 Estim Creat Clear Calc 64 Estimated GFR > 60 Glucose 93 Calcium 8.7 Discharge Plan Discharge Patient Disposition: Home Patient Language: Indonesian Stand Alone Forms: General Discharge Instructions Discharge Medications: Continued cholecalciferol (vitamin D3) 25 mcg (1,000 unit) capsule 25 mcg PO DAILY
[2024-11-25 14:43] VITALS: BP 120/64; PULSE 66; RESP 18; TEMP 36.1; O2SAT 97
--- NOTE | 2024-11-25 14:45 | PC.NURSE ---
Discharge instructions discussed at length with patient and spouse. Being discharged with a tracy catheter in place. Discussed leg bag use and patient requested to leave the large catheter bag in place. Discharged home with a leg bag in the packaging to use if desired. Demonstrated and discussed proper catheter care. Verbalized understanding of information discussed.
== END 2024-11-25 15:15 | disposition home or self-care (01) ==
LOC: ANHSURGERY 06:04 → ANH3MEDSUR 14:01
PROVIDERS: PCP Family Medicine; Visit Provider Urology
PROC: 0VT04ZZ Resection of Prostate, Percutaneous Endoscopic Approach (ICD-10-PCS; CPT 55867; principal; 2024-11-24 07:30)
DX: C61 Malignant neoplasm of prostate (principal); Z87.891 Personal history of nicotine dependence
CPT/HCPCS: 55866; 38571; S2900; 36415; 80048; 85014; 85018; 88309; J0690; A9270; J1100; J1171; J2003; J2250; J2405; J2704; J3010; J7030; J7120; Q9968

== ENCOUNTER 2024-12-03 11:32 | Outpatient (CLI) | payer OTHER, SELFPAY ==
--- NOTE | ~2024-12-03 | XR_ITS ---
EXAMINATION: CYSTOGRAM DATE: 12/03/2024 12:36 INDICATION: Prostate cancer TECHNIQUE: Initial coal cager radiograph of the pelvis was performed. There was retrograde administration of Omnipaque 350 mixed with saline contrast into patient's existing Tellez catheter. Fluoroscopic images of the pelvis were obtained. A post-void image was also performed. Fluoroscopy exposure time was 0.4 minutes. Total DAP was 10.363 Gycm^2. FINDINGS: Typical V-shaped configuration of the base of the bladder consistent with reported history of prior prostatectomy. No evident extraluminal leakage of contrast. IMPRESSION: 1. No bladder leak post prostatectomy. Reviewed, dictated and finalized at location A.
== END 2024-12-03 11:33 | disposition home or self-care (01) ==
PROVIDERS: PCP Family Medicine; Visit Provider Urology
DX: C61 Malignant neoplasm of prostate (principal); Z90.79 Acquired absence of other genital organ(s)
CPT/HCPCS: 51600; 74430; Q9967

== ENCOUNTER 2025-03-02 11:12 | Outpatient (CLI) | payer OTHER, SELFPAY ==
[2025-03-02 11:38] LABS: Hematocrit 41.6 % (42.0-52.0); Hemoglobin 14.3 g/dL (14.0-18.0); Immature Granulocyte Percent A 0.3 % (0-0.5); Lymphocytes Absolute Auto 2.08 K/mm3 (0.9-3.2); Mean Corpuscular HGB Conc 34.4 g/dl (32-36); Mean Corpuscular Hemoglobin 30.8 pg (26-34); Mean Corpuscular Volume 89.5 fl (80-100); Nucleated Red Blood Cells Absolute Auto 0.000 K/mm3 (0.0-0.012); Nucleated Red Blood Cells Perc 0.0 % (0.0-0.2); Platelet Count Result 320 k/mm3 (150-375); Red Blood Count 4.65 M/mm3 (4.6-6.20); White Blood Count 7.8 K/mm3 (4.5-10.0)
[2025-03-02 11:42] LABS: Add Urine Microscopic? NO; Appearance Urine Clear (Clear); Glucose Urine UA Negative (Negative); Leukocyte Esterase Ur Negative LEU/UL (Negative); Nitrate Urine Negative (Negative); Specific Grav Ur 1.011 (1.001-1.035)
[2025-03-02 12:02] LABS: Alanine Aminotransferase 14 U/L (6-50); Albumin Level 4.5 g/dL (3.5-5.1); Alkaline Phosphatase 101 U/L (38-126); Anion Gap 8 mmol/L (4-12); Aspartate Amino Transferase 25 U/L (17-59); Bilirubin,Total 0.6 mg/dL (0.2-1.3); Blood Urea Nitrogen 17 mg/dL (9-20); Calcium 9.2 mg/dL (8.4-10.2); Carbon Dioxide 25 mmol/L (22-30); Chloride 99 mmol/L (98-107); Estimated Glomerular Filt Rate > 60; Glucose 102 mg/dL (65-110); Potassium 4.2 mmol/L (3.4-5.0); Sodium 132 mmol/L (137-145); Total Protein 8.0 g/dL (6.3-8.2)
[2025-03-02 12:33] LABS: Thyroid Stimulating Hormone 3.150 uIU/mL (0.465-4.680)
== END 2025-03-02 11:13 | disposition home or self-care (01) ==
LOC: ANHLAB 11:13
PROVIDERS: PCP Family Medicine; Visit Provider Family Medicine
DX: R63.4 Abnormal weight loss (principal); R73.09 Other abnormal glucose; K58.0 Irritable bowel syndrome with diarrhea; E87.6 Hypokalemia; R39.11 Hesitancy of micturition; R19.5 Other fecal abnormalities; C61 Malignant neoplasm of prostate
CPT/HCPCS: 36415; 80053; 81003; 84443; 85025; 87086